=== PATIENT | male | born 1985 | race African-American/Black ===

== ENCOUNTER 2017-09-01 20:40 | Emergency (ER) | payer OTHER ==
[~2017-09-01] VITALS: Ht 188 cm; Wt 89.8 kg
[2017-09-01 20:44] VITALS: BP 128/88; PULSE 79; RESP 16; TEMP 98.9; O2SAT 99
[2017-09-01] MEDS ORDERED: ROBITUSSIN AC PO (21:00)
[2017-09-01] MEDS ORDERED: ZITHTAB PO (21:00)
--- NOTE | 2017-09-01 21:00 | PD ---
HPI Chief Complaint: Cold / Flu Symptoms Time Seen by Provider: 20:51 Travel History International Travel<30 days: No Contact w/Intl Traveler<30days: No Traveled to known affect area: No History of Present Illness HPI 32-year-old male complains of congestion and coughing. Patient states the symptoms started about a week ago. Patient denies any headache. Patient denies any chest pain shortness of breath. Patient denies abdominal pain. Patient denies any nausea vomiting diarrhea. Patient states her cough be persistent cough and productive cough. Patient denies any fever chills. PFSH Past Medical History Medical History: Denies Significant Hx Diminished Hearing: No Tetanus Vaccination: Unknown Influenza Vaccination: No ?: Not Past Surgical History Surgical History: No Previous Surgery Social History Alcohol Use: No Tobacco Use: No Substance Use: No Allergies-Medications (Allergen,Severity, Reaction): Coded Allergies: No Known Allergies (Unverified Adverse Reaction, Unknown, 09/01/17) Reported Meds & Prescriptions Reported Meds & Active Scripts Active No Active Prescriptions or Reported Medications Review of Systems General / Constitutional: No: Fever Eyes: No: Visual changes HENT: Positive: Congestion, No: Headaches Cardiovascular: No: Chest Pain or Discomfort Respiratory: Positive: Cough, No: Shortness of Breath Gastrointestinal: No: Abdominal Pain Genitourinary: No: Dysuria Musculoskeletal: No: Pain Skin: No Rash Neurologic: No: Weakness Psychiatric: No: Depression Endocrine: No: Polydipsia Hematologic/Lymphatic: No: Easy Bruising Physical Exam Narrative GENERAL: Well-nourished, well-developed patient. SKIN: Focused skin assessment warm/dry. HEAD: Normocephalic. EYES: No scleral icterus. No injection or drainage. Left TM erythematous. Right TM is clear. Throat: Nonerythematous. NECK: Supple, trachea midline. No JVD or lymphadenopathy. No meningismus CARDIOVASCULAR: Regular rate and rhythm without murmurs, gallops, or rubs. RESPIRATORY: Breath sounds equal bilaterally. No accessory muscle use. GASTROINTESTINAL: Abdomen soft, non-tender, nondistended. MUSCULOSKELETAL: No cyanosis, or edema. BACK: Nontender without obvious deformity. No CVA tenderness. Data Data Last Documented VS Vital Signs Date Time Temp Pulse Resp B/P (MAP) Pulse Ox O2 Delivery O2 Flow Rate FiO2 09/01/17 20:44 98.9 79 16 128/88 (101) 99 [facility] Medical Decision Making Medical Screen Exam Complete: Yes Emergency Medical Condition: Yes Differential Diagnosis Differential diagnosis including otitis media, pharyngitis, bronchitis, pneumonia. Narrative Course 32-year-old male with congestion coughing. Diagnosis Primary Impression: Left otitis media Qualified Codes: H66.002 - Acute suppurative otitis media without spontaneous rupture of ear drum, left ear Additional Impression: Bronchitis Patient Instructions: General Instructions Additional Instructions: Z-Shadi as directed. Robitussin-AC for cough. Tylenol for fever. Follow-up with personal physician. Return if worse. Med/Other Pt SpecificInfo: Prescription(s) given Scripts [Robitussin Ac] No Conflict Check 10 ML PO Q8HR for Cough, #90 Prov: Ori Mcfadden MD 09/01/17 Azithromycin (Zithromax Z-Shadi) 250 Mg Dspk 250 MG PO DIRECTED for Infection, #1 DSPK 0 Refills 500 MG (2 tabs) day 1, then 1 tab days 2-5. Prov: Ori Mcfadden MD 09/01/17 Disposition: 01 DISCHARGE HOME Condition: Stable Ori Mcfadden MD Sep 01, 2017 21:00
== END 2017-09-01 21:21 | disposition home or self-care (01) ==
LOC: PHEFT 20:40
DX: H66.002 Acute suppurative otitis media without spontaneous rupture of ear drum, left ear (principal); J40 Bronchitis, not specified as acute or chronic
CPT/HCPCS: 99283